=== PATIENT | male | born 1990 | race Caucasian/White ===

== ENCOUNTER 2022-01-25 00:02 | Day surgery (SDC) | payer OTHER, SELFPAY ==
[2022-01-10 14:32] VITALS: BMI 25.6
[2022-01-25 08:51] VITALS: BP 129/86; PULSE 72; RESP 16; TEMP 36.7; O2SAT 100
[2022-01-25] MEDS: LACTATED RINGERS 1,000 ML 150 ML IV CONT (09:16)
--- NOTE | 2022-01-25 09:55 | PM.HPGS ---
History of Present Illness History of Present Illness Consent: Risks, benefits, and alternatives have been discussed and questions answered. Patient agrees to proceed with procedure. Chief complaint: eosinophilic esophagitis Narrative: Christian Anderson is a 31 year old male with previous food bolus that required urgent EGD and diagnosed with EoE, he has been doing well since using ppi, no more dysphagia. Review of Systems Constitutional: Constitutional: Denies headache(s) and Denies weakness Eyes: Eyes: Denies blurry vision ENT: Reports Normal hearing present, Denies headache(s) and Denies neck pain Cardiovascular: Cardiovascular: Denies chest pain and Denies dyspnea Respiratory: Respiratory: Denies dyspnea Gastrointestinal: Gastrointestinal: Reports no additional gastrointestinal complaints Genitourinary: Genitourinary: Denies dysuria Musculoskeletal: Musculoskeletal: Denies neck pain Integumentary/Breasts: Skin/Breast: Denies dry skin Neurologic: Reports Normal hearing present, Denies headache(s) and Denies weakness Psychiatric: Psychiatric: Denies anxiety Endocrine: Endocrine: Denies change in body appearance Hematologic/Lymphatic: Hematologic/Lymphatic: Denies easy bleeding Allergic/Immunologic: Allergic/Immunologic: Denies urticaria PMFSH Past Medical History Medical History (Updated 01/25/22 @ 09:56 by Mikael Ritchie MD) Eosinophilic esophagitis Food impaction of esophagus GERD (gastroesophageal reflux disease) Overweight (BMI 25.0-29.9) Social History Social History Smoking status: Never smoker Living arrangements: with family Spiritual care concerns: No Meds Home Medications and Allergies Home Medications Medication Instructions Recorded Confirmed Type albuterol sulfate 1 inh INHALATION QID PRN 10/14/19 01/10/22 History cetirizine [Zyrtec] 10 mg PO DAILY 10/14/19 01/10/22 History omeprazole 20 mg capsule,delayed 20 mg PO BID #60 cap 07/15/21 01/10/22 Rx release Allergies Allergy/AdvReac Type Severity Reaction Status Date / Time Anesthetics - Amide Type - AdvReac Severe hives Verified 01/25/22 08:49 Select A cefaclor [From Ceclor] AdvReac Severe hives Verified 01/25/22 08:49 benoxinate [From Fluress] AdvReac Mild Anaphylactic Verified 01/25/22 08:49 Shock ceftriaxone [From Rocephin] AdvReac Mild hives Verified 01/25/22 08:49 Cephalosporins AdvReac Mild hives Verified 01/25/22 08:49 fluorescein [From Fluress] AdvReac Mild Anaphylactic Verified 01/25/22 08:49 Shock Vital Signs Vital Signs - 24 hr 01/25/22 08:51 Temperature 98.1 F Pulse Rate 72 Respiratory Rate 16 Blood Pressure 129/86 Pulse Oximetry 100 Exam Const: General: comfortable and no acute distress HENMT: General nose exam: Normal nares present Eyes: General: appearance normal, both eyes and all related structures Neck: Neck: no JVD Resp: Auscultation: clear to auscultation bilaterally Cardio: Rate: regular rate Rhythm: regular rhythm GI: Inspection: non-distended GI Palp: Yes Soft to palpation Skin: General skin exam: normal color Neuro: General: gait normal Speech: normal speech Extrem: General: normal to inspection Psych: Mental Status: mental status grossly normal Assessment and Plan Assessment and plan (1) GERD (gastroesophageal reflux disease): Code(s): K21.9 - Gastro-esophageal reflux disease without esophagitis Status: Acute (2) Eosinophilic esophagitis: Code(s): K20.0 - Eosinophilic esophagitis Status: Acute Assessment and Plan: egd to reassess, will get bx controlled with ppi
[2022-01-25 10:22] VITALS: BP 115/80; PULSE 71; RESP 17; O2SAT 98
[2022-01-25 10:32] VITALS: BP 113/78; PULSE 67; RESP 19; O2SAT 95
[2022-01-25 10:42] VITALS: BP 126/84; PULSE 72; RESP 18; O2SAT 95
== END 2022-01-25 10:46 | disposition home or self-care (01) ==
PROVIDERS: PCP Internal Medicine; Visit Provider Internal Medicine Gastroenterology
PROC: 0DJ08ZZ Inspection of Upper Intestinal Tract, Via Natural or Artificial Opening Endoscopic (ICD-10-PCS; CPT 43235; principal; 2022-01-25 10:00)
DX: K20.0 Eosinophilic esophagitis (principal); K22.2 Esophageal obstruction; K29.50 Unspecified chronic gastritis without bleeding; K44.9 Diaphragmatic hernia without obstruction or gangrene
CPT/HCPCS: 43249; 43239; 88305; C1726; J2704; J7120